=== PATIENT | female | born 1990 | race Caucasian/White ===

== ENCOUNTER 2017-04-09 19:45 | Inpatient (IN) | payer MEDICAID, OTHER ==
[2017-04-09] MEDS ORDERED: Penicillin G 5 Million Unit Vial IVPB ONE (20:42)
[2017-04-09 20:43] VITALS: BMI 25.2
[2017-04-09] MEDS ORDERED: Lactated Ringer's 1,000 ML IV SCH (20:45)
[2017-04-09] MEDS ORDERED: Nalbuphine 20 mg/ml Inj (1 ml) IVP PRN (21:00)
[2017-04-09 21:03] LABS: BASO % 0.1 % (0.0-2.0); EOS # 0.1 K/uL (0.0-0.7); EOS % 0.7 % (0.0-4.0); HEMATOCRIT 36.8 % (34.0-47.0); LYMPH # 1.9 K/uL (1.0-4.3); MEAN CELL VOLUME 81.5 fL (81.0-99.0); MEAN CORPUSCULAR HEMOGLOBIN 27.5 pg (27.0-31.0); MEAN CORPUSCULAR HGB CONC 33.7 g/dL (33.0-37.0); MEAN PLATELET VOLUME 8.8 fL (7.2-11.7); MONO # 0.6 K/uL (0.0-0.8); RED CELL DISTRIBUTION WIDTH 18.3 % (11.5-14.5); WHITE BLOOD COUNT 9.8 K/uL (4.8-10.8)
[2017-04-09 21:04] LABS: URINE BILIRUBIN NEGATIVE (NEGATIVE); URINE BLOOD NEGATIVE (NEGATIVE); URINE COLOR Straw (YELLOW); URINE GLUCOSE (UA) NORMAL (Normal); URINE KETONE NEGATIVE (NEGATIVE); URINE LEUKOCYTE ESTERASE NEG Leu/uL (Negative); URINE PROTEIN NEGATIVE (NEGATIVE); URINE UROBILINOGEN NORMAL mg/dL (0.2-1.0); WBC URINE 1 /hpf (0-5)
[2017-04-09 21:13] LABS: CHLORIDE 103 mmol/L (98-107); POTASSIUM 3.9 mmol/L (3.6-5.2); SODIUM 137 mmol/L (132-148)
[2017-04-09 21:15] LABS: ALKALINE PHOSPHATASE 123 U/L (38-126); AST/SGOT 28 U/L (14-36); BILIRUBIN,TOTAL 0.3 mg/dL (0.2-1.3); CARBON DIOXIDE 22 mmol/L (22-30); GFR AFRICAN-AMERICAN > 60
[2017-04-09 21:16] LABS: ALB/GLOB RATIO 1.1 (1.0-2.1); ALT/SGPT 32 U/L (9-52); BLOOD UREA NITROGEN 9 mg/dL (7-17); CALCIUM 9.2 mg/dl (8.6-10.4); GLUCOSE,RANDOM 91 mg/dL (65-105); TOTAL PROTEIN 6.7 g/dL (6.3-8.3)
[2017-04-09] MEDS: Lactated Ringer's 1,000 ML IV SCH (21:18)
--- NOTE | 2017-04-09 21:22 | OBADHP ---
Datetime: 04/09/2017 21:20 FHR - Baseline A Provider: 120 NICHD Variability Prov Fetus A: Moderate 6-25bpm NICHD Accel Fetus A IP Provider: 15X15 FHR Category Provider Fetus A: Category I NICHD Decel Fetus A IP Provider: None Datetime: 04/09/2017 20:51 IP Admit Plan Other: cervical ripening Admit Comment, IP Provider: 26 y.o. , LMP 07/13/, MORIS 04/19/17, EGA 38w 4d referred by PMD Dr. Gwendolyn Shirley for c/o maternal discomfort. (+) AFM; deines LOF, VB, Ctx. care: Dr. Shirley x 3 visits. MIgrated to [facility] from [place] 1 1/2 months ago. 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 Stopped in November, at approx 6 months. P Ob: x 2: both males, both delivered at [facility]: 2009, 7 1/2 lb; no complications. 20 13, 9lb - vulvar hematoma, required evacuation in the O.R. No h/o GDM. 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 2016, [place] laser eye surgery NKDA Meds: PNV Soc Hx: Denies tobacco, illicit drug or EtOH use. Lives with her and sons. Fam Hx: Mother alive 43 y.o. hep C. Father alive 51 y.o. no med issues. No known fam h/o cancer P.E.: as above. WD in NAD. Awake, alert, oriented to time, person and place. Pleasant and coope rative. Accompanied by her and Assessment: 26 y. P2, 38w 4d, for cervical ripening and delivery; h/o prev LGA with pelvic floor trauma. D/W patient and , cervidil and pain managment; latter upon request. The option of IV sedation was also discusssed. Patient expressed an understanding and agree; their questions were ans wered. Category 1 tracing. Plan: 1) Admit 2) NPO 3) IVFs 4) Admission labs 5) Continuous EFM 6) Cervidil 7) Penicillin 8) Pain meds, upon request 9) Anticipate vaginal delivery - as per and discussed with Dr. Shirley Pelvic Type - PN: Adequate Extremities - PN: Normal Abdomen - PN: Normal Back - PN: Normal Breast - PN: Normal Lungs - PN: Normal Heart - PN: Normal Thyroid - PN: Not Done Neurologic - PN: Normal HEENT - PN: Normal General - PN: Normal Presentation-Admit: Vertex Contraction Comments Provider: 10 minutes Comments, ACOG Physical Exam: Abdomen: Gravid. Soft. Fundal height 39cm All other systems reviewed and are negative Gestation - Est Wks by US: 38w 4d IP Hx Assessment: The History has been Reviewed and is Current Vital Signs Provider: Reviewed; Within Normal Limits IP Chief Complaint: Maternal discomfort Dilatation, Provider: 1 Effacement, Provider: 30 Station, Provider: -3 Genitourinary Exam: Normal DTRs - PN: Not Done EGA AdmitDate IP: 38.4 IP Adm Impression: Term, intrauterine ; No Active Labor IP Admit Plan: Admit to unit; Initiate labor induction protocol
--- NOTE | 2017-04-09 21:22 | OBPN ---
Datetime: 04/09/2017 21:20 FHR - Baseline A Provider: 120 IP Progress Note Comment: Cervidil placed in posterior vaginal vault Assessment: as above. Category 1 tracing. Clinically stable Plan: 1) as above 2) anticipate vaginal delivery NICHD Accel Fetus A IP Provider: 15X15 FHR Category Provider Fetus A: Category I NICHD Variability Prov Fetus A: Moderate 6-25bpm NICHD Decel Fetus A IP Provider: None Datetime: 04/09/2017 20:51 Contraction Comments Provider: 10 minutes Gestation - Est Wks by US: 38w 4d Presentation-Admit: Vertex Vital Signs Provider: Reviewed; Within Normal Limits Dilatation, Provider: 1 Effacement, Provider: 30 Station, Provider: -3
[2017-04-10] MEDS ORDERED: Penicillin G 5 Million Unit Vial IVPB ONE (03:12)
[2017-04-10] MEDS: Lactated Ringer's 1,000 ML IV SCH (03:14)
[2017-04-10] MEDS ORDERED: Nalbuphine 20 mg/ml Inj (1 ml) ONE (03:17)
--- NOTE | 2017-04-10 06:55 | OBPN ---
Datetime: 04/10/2017 06:45 Membranes, Provider: Ruptured Amniotic Fluid Color, Provider: Meconium, Light Contraction Comments Provider: irregular FHR - Baseline A Provider: 135 Gestation - Est Wks by US: 38w 5d Presentation-Admit: Vertex IP Progress Note Comment: Patient with SROM - light meconium liquor. S/P nubain at 0400 hours; chasidy ires epidural. V.E. as above Assessment: 26 yo P2, 38w 5d, SROM; S/P cervidil with appropriate cervical response. Category 1 tr acing. Clinically stable. Plan: 1) Continue present management 2) Epidural 3) Anticipate vaginal delivery Vital Signs Provider: Reviewed; Within Normal Limits NICHD Accel Fetus A IP Provider: 10X10 FHR Category Provider Fetus A: Category I NICHD Variability Prov Fetus A: Moderate 6-25bpm Dilatation, Provider: 3 Effacement, Provider: 40 Station, Provider: -3 NICHD Decel Fetus A IP Provider: None
--- NOTE | 2017-04-10 08:20 | OBPN ---
Datetime: 04/10/2017 08:15 IP Progress Impression: Normal progression of labor IP Informed Consent Obtain: Vaginal Delivery IP Progress Plan: Continue present management Membranes, Provider: Ruptured Amniotic Fluid Color, Provider: Clear Contraction Comments Provider: q 5 min FHR - Baseline A Provider: 135 Gestation - Est Wks by US: 38.5 Presentation-Admit: Vertex IP Progress Note Comment: pt seen and examined for progression of labor. pt s/p Cervidil for IOL for Intrahepatic cholestaiss of pergnancy pt reports ctx every 5-10 minutes increasding in intesnity after SROM this mronign, clear fluid. p t denies any VB and reports decreased movements VSS VE: 4/50/-3 A/P @ 38.5 wks GA IOL for cholestasis of -s/p cerbidl -SROM 6:30am, celar -for Anesthesia consult: pain manamgnet -For pitocion augmentation Vital Signs Provider: Reviewed; Within Normal Limits FHR Category Provider Fetus A: Category I NICHD Variability Prov Fetus A: Moderate 6-25bpm Dilatation, Provider: 4 Effacement, Provider: 50 Station, Provider: -3 NICHD Decel Fetus A IP Provider: None
[2017-04-10] MEDS ORDERED: Bupivacaine 0.25% Inj(30mL) ONE (08:35)
[2017-04-10] MEDS ORDERED: Oxytocin 30 UNIT 30 UNITS/500 ML BAG IV SCH (09:30)
[2017-04-10] MEDS ORDERED: Oxytocin 30 UNIT 30 UNITS/500 ML BAG IV ONE (09:32)
--- NOTE | 2017-04-10 12:47 | OBPN ---
Datetime: 04/10/2017 12:43 IP Progress Impression: Normal progression of labor IP Informed Consent Obtain: Vaginal Delivery IP Progress Plan: Continue present management Membranes, Provider: Ruptured Amniotic Fluid Color, Provider: Meconium, Light Contraction Comments Provider: q 2 min FHR - Baseline A Provider: 130 Gestation - Est Wks by US: 38.5 Presentation-Admit: Vertex IP Progress Note Comment: pt seen and examiend c/o of pressure, needing to use bathroom. Pt with LOF , no vb, +FM VSS EMF: Cat I, with itermitten variables TOCO; q 2min A/P G3P@ @ 38.5 wks GA in active labor -pitoicn as per protocin -aneestesia -oxygen, left lateral ivh, if persisent rafael will d/ cpiotcin -cont current managmentr Vital Signs Provider: Reviewed; Within Normal Limits NICHD Variability Prov Fetus A: Moderate 6-25bpm Dilatation, Provider: 7 Effacement, Provider: 70 Station, Provider: -2 NICHD Decel Fetus A IP Provider: Variable
[2017-04-10] MEDS ORDERED: Lidocaine 2% MPF (5 ml) Inj ONE (13:03)
[2017-04-10] MEDS ORDERED: Oxycodone/Acetaminophen 5/325 mg Tab PO PRN ×2 (13:42)
--- NOTE | 2017-04-10 13:43 | OBDS ---
DELIVERY PERSONNEL Delivery Doctor: Arminda Shirley MD Meter Maintenance Person: Maggie Kramer RN Anesthesiologist: Arminda Ibarra MD MATERNAL INFORMATION Delivery Anesthesia: Epidural Placenta Cultured: No Maternal Complications: None RN Comments: cord around body and foot x1, Provider Comments: pt was fully dilated and pushing. atrumatic, spontnaoue delivery of head in CHUCK p osition, no nuchal cord. atraumtic spontanous delivery of anterior followed by postieor should follow e by delivery of body with body cord x 1 easily reduced. Umbilical cord clamped and cut. baby jd d to mother on abdomen with rn assistance. Cord blood and cord gases collected and sent x 2. Sponta noeus delivery of intact placenta with membrnaes. bimanual massage , fundus firm, good hemostaisis. second degree pernieal lacteration noted and repaired with 2-0 chromic. no cervical lacerations, no h ematoma, etc. Live female delivered. No complications. ebl 200ml apgars 9,9 weight of 7lbs 4 ounces LABOR SUMMARY EDC: 04/19/2017 00:00 No. Babies in Womb: 1 Attempted: No Labor Anesthesia: Epidural LABOR INFORMATION Reason for Induction: Other Reason for Induction Other: cholestasis Onset of Labor: 04/10/2017 03:00 Complete Dilatation: 04/10/2017 13:10 Cervical Ripening Agents: Cervidil Oxytocin: Induction Group B Beta Strep: Positive Antibiotics # of Doses: 3 Antibiotics Time of Last Dose: 11am Steroids Given: None Reason Steroids Not Administered: Not Applicable MEMBRANES Membranes Rupture Method: Spontaneous Rupture of Membranes: 04/10/2017 06:20 Length of Rupture (hrs): 6.95 Amniotic Fluid Color: Light Meconium Amniotic Fluid Amount: Copious Amniotic Fluid Odor: Normal STAGES OF LABOR Stage 1 hrs: 10 Stage 1 min: 10 Stage 2 hrs: 0 Stage 2 min: 7 VAGINAL DELIVERY Episiotomy: None Laceration Extension: Second Degree Laceration Type: Perineal Laceration Repair: Yes Laceration Repair Note: second degree perineal lacerationed noted and repaired with 2-0 chromic Initial Vag Sponge Count: 10 Initial Vag Sharps Count: 1 Final Vag Sharps Count: 1 Sponge Count Correct: Yes Sharps Count Correct: Yes Count Comment: md made aware of count BABY A INFORMATION Delivery Date/Time: 04/10/2017 13:17 Method of Delivery: Vaginal Born in Route : No : N/A Forceps: N/A Vacuum Extraction: N/A Shoulder Dystocia : No SHOULDER DYSTOCIA BABY A Delivery Date/Time: 04/10/2017 13:17 PRESENTATION/POSITION BABY A Presentation: Cephalic Cephalic Presentation: Vertex Vertex Position: Right Occipital Anterior Breech Presentation: N/A SCORES BABY A Heart Rate 1 min: >100 bpm Resp Effort 1 min: Good Cry Reflex Irritability 1 min: Cough or Sneeze or Pulls Away Muscle Tone 1 min: Active Motion Color 1 min: Body [place], Extremities Blue Resuscitation Effort 1 min: Tactile Stimulation SCORE 1 MIN: 9 Heart Rate 5 min: >100 bpm Resp Effort 5 min: Good Cry Reflex Irritability 5 min: Cough or Sneeze or Pulls Away Muscle Tone 5 min: Active Motion Color 5 min: Body [place], Extremities Blue Resuscitation Effort 5 min: Tactile Stimulation SCORE 5 MIN: 9 INFANT INFORMATION BABY A Gestational Age at Delivery: 38.5 Gestational Status: Outcome : Liveborn Infant Condition : Stable Infant Sex: Female IDENTIFICATION/MEDS BABY A ID Band Number: [id number] ID Band Location: Left Leg; Left Arm Sensor Applied: Yes Sensor Number: [id number] Sensor Location : Cord Clamp WEIGHT/LENGTH BABY A Birthweight (gms): 3290 Weight (lb): 7 Infant Weight (oz): 4 Infant Length Inches: 19.50 Infant Length cms: 49.5 CORD INFORMATION BABY A No. Cord Vessels: 3 Nuchal Cord : N/A Cord Blood Taken: Yes
[2017-04-10] MEDS: Benzocaine/Menthol 20%-0.5% Topical Spray (60 ml) TOP PRN (15:34)
--- NOTE | 2017-04-11 06:52 | OBPPN ---
Datetime: 04/11/2017 06:46 PP Pain Prov: Within normal limits PP Nausea Prov: Denies PP Flatus Prov: Yes PP BM Prov: No PP Breasts Prov: Normal PP Heart Prov: Normal PP Lungs Prov: Normal PP Abdomen/Uterus Prov: Normal PP Lochia Prov: Normal PP Vulva/Perineum Prov: Normal PP CVA Tenderness Prov: Normal PP Extremities Prov: Normal PP C/S Incision Prov: Not Applicable PP Progress Prov: Normal PP Impression Prov: Normal progression PP Plan Prov: Continue present management PP Progress Note Prov: pt seen and examied reports pian is controlled with medicatin. pt ambuating, voidign, passing flatus, breast feeding, minimal vaignal bleeding, dneis any fevers, chyills, nasue,v omtiing. IP PP Procedures: None Vital Signs Provider PP: Reviewed; Within Normal Limits
[2017-04-11 07:52] LABS: BASO % 0.1 % (0.0-2.0); EOS # 0.1 K/uL (0.0-0.7); EOS % 0.4 % (0.0-4.0); HEMATOCRIT 38.7 % (34.0-47.0); LYMPH # 1.8 K/uL (1.0-4.3); MEAN CORPUSCULAR HEMOGLOBIN 27.3 pg (27.0-31.0); MEAN CORPUSCULAR HGB CONC 32.8 g/dL (33.0-37.0); MEAN PLATELET VOLUME 9.3 fL (7.2-11.7); MONO # 0.7 K/uL (0.0-0.8); MONO % 4.9 % (0.0-10.0); RED CELL DISTRIBUTION WIDTH 18.4 % (11.5-14.5); WHITE BLOOD COUNT 14.7 K/uL (4.8-10.8)
[2017-04-11] MEDS: Multiple Vitamins Tab PO SCH (11:01)
[2017-04-11] MEDS: Benzocaine/Menthol 20%-0.5% Topical Spray (60 ml) TOP PRN (11:38)
[2017-04-11 16:12] VITALS: O2SAT 98
[2017-04-12 00:46] VITALS: TEMP 97
[2017-04-12 08:14] LABS: BASO % 0.2 % (0.0-2.0); EOS # 0.2 K/uL (0.0-0.7); EOS % 1.6 % (0.0-4.0); HEMATOCRIT 38.5 % (34.0-47.0); LYMPH # 1.8 K/uL (1.0-4.3); LYMPH % 15.4 % (20.0-40.0); MEAN CELL VOLUME 83.4 fL (81.0-99.0); MEAN CORPUSCULAR HEMOGLOBIN 27.6 pg (27.0-31.0); MEAN CORPUSCULAR HGB CONC 33.1 g/dL (33.0-37.0); MONO # 0.5 K/uL (0.0-0.8); MONO % 4.7 % (0.0-10.0); RED CELL DISTRIBUTION WIDTH 18.7 % (11.5-14.5); WHITE BLOOD COUNT 11.7 K/uL (4.8-10.8)
[2017-04-12] MEDS: Multiple Vitamins Tab PO SCH (09:36)
--- NOTE | 2017-04-12 17:14 | OBPPN ---
Datetime: 04/12/2017 17:09 PP Pain Prov: Within normal limits PP Nausea Prov: Denies PP Flatus Prov: Yes PP BM Prov: Yes PP Breasts Prov: Normal PP Heart Prov: Normal PP Lungs Prov: Normal PP Abdomen/Uterus Prov: Normal PP Lochia Prov: Normal PP Vulva/Perineum Prov: Normal PP CVA Tenderness Prov: Normal PP Extremities Prov: Normal PP Comments Phys Exam Prov: abd; fundus ffirm, blweo leove fo umbicls ve; minaml lochia, non culs mselling no evidence of hemaotoma PP Impression Prov: Normal progression PP Plan Prov: Continue present management; Discharge PP Progress Note Prov: pt seen and examiend and reports no pain, pt ambulating, voidng, passign flat us, +BM, deies heavey bleeding, breast feeding vss pe see aove a/p s/p PPD #2 stable for dsicharge d/c home rto 6 weeks precatuiosn given IP PP Procedures: None Vital Signs Provider PP: Reviewed; Within Normal Limits
--- NOTE | 2017-04-12 17:14 | OBDCSUM ---
Datetime: 04/12/2017 14:22 Discharged to, Provider: Home Follow up at, Provider: Dr. Shirley Disch Instr Activity: Normal activity Disch Instr Diet: Regular Discharge Diet restrict Prov: none Discharge Instructions, Provider: Routine instructions given Discharge Diagnosis, Provider: Term Delivered Discharge Time: 04/12/2017 15:00 Follow up in weeks, Provider: 6 weeks Disch Referrals: None Contraception discussed, Prov: Yes Disch Activity Restrictions: No exercising; No lifting; No driving; Minimize walking; Minimize stair -climbing; No sexual activity; Nothing in vagina - Swink, tampons, douche Discharge Comment, Provider: precuation roly
[2017-04-12 21:42] VITALS: BP 102/57; PULSE 67; RESP 18
== END 2017-04-12 15:15 | disposition home or self-care (01) | DRG 775 ==
LOC: C.EROB 19:45 → C.4D 20:25 → C.4M 04-10 15:31
PROVIDERS: ADMIT Obstetrics & Gynecology; ATTEND Obstetrics & Gynecology
PROC: 3E0P7GC Introduction of Other Therapeutic Substance into Female Reproductive, Via Natural or Artificial Opening (ICD-10-PCS; 2017-04-09)
PROC: 10E0XZZ Delivery of Products of Conception, External Approach (ICD-10-PCS; principal; 2017-04-10)
PROC: 0KQM0ZZ Repair Perineum Muscle, Open Approach (ICD-10-PCS; 2017-04-10)
DX: O26.62 Liver and biliary tract disorders in childbirth (principal); K83.1 Obstruction of bile duct; O70.1 Second degree perineal laceration during delivery; O77.0 Labor and delivery complicated by meconium in amniotic fluid; Z3A.38 38 weeks gestation of pregnancy; Z37.0 Single live birth